=== PATIENT | female | born 1950 | race Caucasian/White ===

== ENCOUNTER 2017-02-05 17:51 | Observation (INO) | payer MEDICARE ==
[~2017-02-05] VITALS: Ht 167.6 cm; Wt 72.1 kg
[2017-02-05 17:57] VITALS: BP 173/81; PULSE 123; RESP 16; O2SAT 99
--- NOTE | 2017-02-05 18:06 | ED.REPORT ---
HPI-General Illness Date of Service Feb 05, 2017 ED Provider: Joe Triana MD A 66 year old female with a history of palpations, anxiety, hypertension, high cholesterol, GERD and diabetes complaining of chest pain onset 30 minutes ago. The pt experienced sudden onset nonradiating substernal chest "pressure" thirty minutes ago while she was resting, accompanied by difficulty breathing, numbness , dizziness, nausea and palpitations. The pt has also been experiencing abdominal pain for two days. She denies changes in bowel or bladder habits, or shortness of breath. The pt took a 325 aspirin prior to arrival, Xanax at 12:30 and a hydrocodone at 16:30. Nursing Notes Stated Complaint: CHEST TIGHTNESS/TROUBLE BREATHING Chief Complaint: Chest Pain Nursing Notes Reviewed: Yes Allergies: Coded Allergies: Penicillins (Verified Adverse Reaction, Mild, DIARRHEA, ITCHING, 02/05/17) Uncoded Allergies: PENICILLIN (Allergy, Severe, 02/05/17) Scheduled Atenolol (Atenolol) 50 Mg Tablet 50 MG PO HS Atorvastatin (Lipitor) 40 Mg Tablet 40 MG PO DAILY Ezetimibe (Zetia) 10 Mg Tablet 10 MG PO DAILY Losartan/HCTZ 50-12.5 mg (Losartan/HCTZ 50-12.5 mg) 1 Each Tablet 0.5 TABLET PO DAILY Metformin (Metformin) 500 Mg Tablet 1,000 MG PO HS Metformin (Metformin) 500 Mg Tablet 500 MG PO MORNING Omeprazole (Omeprazole) 20 Mg Capsule.dr 20 MG PO MORNING Scheduled PRN Alprazolam (Alprazolam) 0.5 Mg Tablet 0.25 MG PO TID PRN PRN For Anxiety Oxycodone HCl/Acetaminophen (Endocet 10-325 mg Tablet) 1 Each Tablet 1 EACH PO QID PRN PRN For Pain Miscellaneous Medications Aspirin (Aspirin) 325 Mg Tablet 325 MG PO General Time Seen by MD: 18:05 Chief Complaint Chest pain Hx Obtained From: Patient Arrived By: Walk-in Sudden in Onset?: Yes Onset Occurred: 31 - 45 minutes ago Location: : Chest Quality: Pressure Radiation: : Does not radiate Severity: Current: Pain level 4 out of 10 Recent Healthcare: No recent doctor visit, No recent hospitalization Similar Sx Previous: No Past Medical History Past Medical History palpations anxiety hypertension high cholesterol osteoarthritis GERD type II diabetes on Metformin Past Surgical History neck and back fusion left shoulder Reports: Cholecystectomy, Hysterectomy Family History RI (father in his 40's and of RI at 53) stroke Smoking History Unknown if Ever Smoker Social History Other Social History: Ambulatory Status Independent Review of Systems difficulty breathing Full Review of Systems Respiratory: Denies: Shortness of breath Cardiovascular: Reports: Chest pain, Palpitations GI: Reports: Abdominal pain, Nausea Musculoskeletal: Denies: Back pain, Neck pain Neurologic: Reports: Dizziness, Numbness, Denies: Bladder dysfunction, Bowel dysfunction Complete sys rev & neg: except as marked. Physical Exam Constitutional: Well-developed, well-nourished. Not diaphoretic. Head: Normocephalic and atraumatic. Mouth/Throat: Oropharynx is clear and moist. No oropharyngeal exudate. Eyes: EOM are normal. Pupils are equal, round, and reactive to light. Neck: Supple, no tracheal deviation. Cardiovascular: Tachycardic, regular rhythm. No murmurs, rubs or gallops. Equal and intact distal pulses throughout. Pulmonary/Chest: Effort normal and breath sounds normal. No respiratory distress. Abdominal: Soft. No distension. There is no focal tenderness to palpation, rebound, or guarding. Bowel sounds present. Musculoskeletal: Range of motion grossly intact, moving all extremities. No edema or tenderness appreciated. Neurological: AOx3. Grossly nonfocal exam. Strength and sensation intact and equal to bilateral upper and lower extremities. Skin: Warm and dry, no rashes or pallor appreciated. Psychiatric: Appropriate mood and affect. Behavior appears normal. Vital Signs Vital Signs Date Time Temp Pulse Resp B/P Pulse Ox O2 Delivery O2 Flow Rate FiO2 02/05/17 20:07 94 14 130/63 94 Room Air 02/05/17 19:06 108 15 157/59 95 Room Air 02/05/17 17:57 36.6 123 16 173/81 99 Initial VS: Reviewed Interpretation & Diagnostics Interpretation & Diagnostics: Chest/Abdomen/Pelvis CT: IMPRESSION: No evidence of pulmonary embolism. No evidence of aortic dissection or aneurysm. Bilateral renal cysts. Normal appendix. Colonic diverticulosis. Dictated by: Laurent Blandon M.D. on 02/05/2017 at 19:29 Approved by: Laurent Blandon M.D. on 02/05/2017 at 19:35 Lab Results Interpretation Result Diagram: 02/06/17 0340 02/06/17 0340 Test 02/05/17 18:00 Neutrophils (%) (Auto) 44.1% (40-74) Lymphocytes (%) (Auto) 47.3% (14-46) Monocytes (%) (Auto) 7.1% (4-12) Eosinophils (%) (Auto) 1.1% (0-5) Basophils (%) (Auto) 0.2% (0-3) Total Bilirubin 0.5mg/dL (0.0-1.2) Aspartate Amino Transf (AST/SGOT) 17U/L (0-50) Alanine Aminotransferase (ALT/SGPT) 18U/L (0-32) Alkaline Phosphatase 92U/L (25-165) Total Creatine Kinase 115U/L (21-215) Creatine Kinase MB 1.7ng/mL (0.0-5.3) Creatine Kinase MB % % (0.0-5.0) Pro-B-Type Natriuretic Peptide 106.3pg/mL (0-301) Total Protein 8.2g/dL (6.4-8.4) Albumin 4.5g/dL (3.4-5.0) Hold Brooks Top Tube Received (Received) ECG Interpretation ECG Interpretation: sinus tachycardia with a rate of 125 probable LVH with secondary repol abnormality ST depression, consider ischemia, diffuse leads; primarily lateral leads Time: 17:56 Interpreted by: ED physician ECG Interpretation: sinus tachycardia with a rate of [address] changes without evidence of acute infarct Time: 18:46 Interpreted by: ED physician X-Ray Chest Interpretation Chest Xray Interpretation: IMPRESSION: No acute disease Dictated by: Laurent Blandon M.D. on 02/05/2017 at 18:29 Approved by: Laurent Blandon M.D. on 02/05/2017 at 18:29 Interpretation / Wet Read by: Interpret - Radiologist Re-Eval/Medical Decision Med Decision/Clinical Course 66-year-old female presenting to the ED for evaluation of chest pain. Her pain is relieved by nitroglycerin, does have what appear to be ischemic EKG changes. Discussed with the manager talent acquisition as per below. CT scan of the patient's chest , abdomen, and pelvis did not demonstrate any obvious etiology for the patient' s symptoms or presentation. Unclear etiology at this time, however given the findings above, plan admission for further evaluation and management, likely echocardiogram, cardiology consult. Patient agreeable to the plan as stated, no further questions. Source of Hx: Old records Time of Eval: 18:05 Re-Evaluation/Progress Note: Pt informed of the plan for admission during the initial interview. The pt understands and agrees with the plan. All questions are addressed at this time. Time of Eval: 20:32 Re-Evaluation/Progress Note: Pt rechecked, who is comfortable. Her pain has resolved following Nitro. The plan for admission is further discussed. Consultation #1: Referral / Consult Name: Jefferson Rosario MD Consulted With: Cardiology Call Returned at: 20:41 Animal Pathologist: Agrees with eval, Agrees with plan Note: Consulted with Dr. Rosario, cardiology, regarding pt's case. Dr. Rosario recommends admission for an echocardiogram in the morning, and agrees to consult. Consultation #2: Referral / Consult Name: Luis Bueno MD Consulted With: Hospitalist Call Returned at: 21:02 Animal Pathologist: Agrees with eval, Agrees with plan, Accepts admit Note: Spoke with Dr. Bueno, hospitalist, regarding pt's case. Dr. Bueno agrees with the evaluation and agrees to admit the pt. Counseled Regarding: Diagnosis, Lab results, Need for admission Discharge & Departure Primary Impression: Chest pain Chest pain type: unspecified Qualified Code: R07.9 - Chest pain, unspecified Disposition: ADMITTED TO HOSPITAL Discharge Condition All VS Reviewed: Yes Condition: Stable Referrals: Gracia Hill MD (PCP) Crit Care Except Billable Proc Time Spent: 30-74 minutes Services Performed: Patient management by me, Time spent at bedside, Reviewing test results, Reviewing imaging, Discussing patient care, Documentation in record Critical Care Notes: Please see MDM. [place] Attestation Portions of this note were transcribed by Mary Presley. I, Dr. Triana personally performed the history, physical exam and medical decision-making; I reviewed and confirmed the accuracy of the information in the transcribed note. Signed by: Bere Armstrong, 02/05/2017 and 2103. copies to: Gracia Hill MD, William B MD Feb 05, 2017 18:06 MARY PRESLEY Feb 05, 2017 18:17 Re-Eval/Medical Decision Source of Hx: Old records Time of Eval: 18:05 Re-Evaluation/Progress Note: Pt informed of the plan for admission during the initial interview. The pt understands and agrees with the plan. All questions are addressed at this time. Time of Eval: 20:32 Re-Evaluation/Progress Note: Pt rechecked, who is comfortable. Her pain has resolved following Nitro. The plan for admission is further discussed. Consultation #1: Referral / Consult Name: Jefferson Rosario MD Consulted With: Cardiology Call Returned at: 20:41 Animal Pathologist: Agrees with eval, Agrees with plan Note: Consulted with Dr. Rosario, cardiology, regarding pt's case. Dr. Rosario recommends admission for an echocardiogram in the morning, and agrees to consult. Consultation #2: Referral / Consult Name: Luis Bueno MD Consulted With: Hospitalist Call Returned at: 21:02 Animal Pathologist: Agrees with eval, Agrees with plan, Accepts admit Note: Spoke with Dr. Bueno, hospitalist, regarding pt's case. Dr. Bueno agrees with the evaluation and agrees to admit the pt. Counseled Regarding: Diagnosis, Lab results, Need for admission Discharge & Departure Primary Impression: Chest pain Chest pain type: unspecified Qualified Code: R07.9 - Chest pain, unspecified Disposition: ADMITTED TO HOSPITAL Discharge Condition All VS Reviewed: Yes Condition: Stable Referrals: Gracia Hill MD (PCP) Bere Attestation Portions of this note were transcribed by Mary Presley. I, Dr. Triana personally performed the history, physical exam and medical decision-making; I reviewed and confirmed the accuracy of the information in the transcribed note. Signed by: Bere Armstrong, 02/05/2017 and 210. copies to: Gracia Hill MD, William B MD Feb 05, 2017 18:06 MARY PRESLEY Feb 05, 2017 18:17
[2017-02-05 18:18] LABS: BASOPHILS % (AUTO) 0.2 % (0-3); EOSINOPHILS % (AUTO) 1.1 % (0-5); MONOCYTES % (AUTO) 7.1 % (4-12); Mean Corpuscular Volume 83.2 fL (81-100); NEUTROPHILS % (AUTO) 44.1 % (40-74); Platelet Count 419 bil/L (150-400)
[2017-02-05] MEDS ORDERED: Ondansetron 2 mg/mL 2 mL Inj IVPUSH ONE (18:25)
--- NOTE | 2017-02-05 18:31 | DRSVH ---
PROCEDURE: X-RAY CHEST ONE VIEW, PORTABLE ([id number]) INDICATIONS: cp TECHNIQUE: One view of the chest was acquired. COMPARISON: None. FINDINGS: Surgical changes and devices: None. Lungs and pleura: No pleural effusions or pneumothorax. Lungs are clear. Mediastinum: Mediastinal contours appear normal. Heart size is normal. Bones and chest wall: No suspicious bony lesions. Overlying soft tissues appear unremarkable. IMPRESSION: No acute disease Dictated by: Laurent Blandon M.D. on 02/05/2017 at 18:29 Approved by: Laurent Blandon M.D. on 02/05/2017 at 18:29
[2017-02-05 18:36] LABS: TROPONIN T < 0.010 ug/L (0.0-0.011)
[2017-02-05 18:45] LABS: Magnesium 1.5 mg/dL (1.6-2.6)
[2017-02-05 19:06] VITALS: BP 157/59; PULSE 108; RESP 15; O2SAT 95
--- NOTE | 2017-02-05 19:37 | DRSVH ---
PROCEDURE: CT ANG CHEST/ABD/PEL W/WO CIBTRAST ([id number]) INDICATIONS: chest pain, abd pain; eval for dissection, other TECHNIQUE: Precontrast 5 mm thick sections acquired from the lung apices to the iliac crests. After the adminis tration of intravenous contrast, 3 mm thick sections again acquired from the lung apices to the iliac crests. 3-dimensional maximum intensity projection (MIP) oblique sagittal and coronal reformats wer e then acquired, and/or 3-dimensional volume rendering reformats. For radiation dose reduction, the following was used: automated exposure control. COMPARISON: None. FINDINGS: Image quality: Excellent. AORTA: No evidence of aortic dissection or aneurysm. No periaortic hemorrhage. CHEST: Lungs and pleura: No filling defects to suggest pulmonary emboli. No acute airspace opacities. No p leural effusions or pneumothorax. Central and peripheral airways are patent and normal in caliber. Mediastinum: Heart size is normal. No pericardial effusion. No mediastinal or hilar adenopathy by size criteria. Central pulmonary arteries are normal in size. Esophagus is normal in caliber. No h iatal hernias. Bones and chest wall: No axillary adenopathy by size criteria. Thyroid gland negative. No suspicio us bony lesions. No vertebral body compression fractures. ABDOMEN: Vasculature: Celiac trunk and mesenteric arteries are patent. Renal arteries are also patent. Solid organs: Liver and spleen are normal in size. Gallbladder surgically absent. Biliary system i s non dilated. Pancreas enhances normally. No adrenal nodules. Both kidneys are normal in size and enhancement, without hydronephrosis. There are small bilateral renal cysts Peritoneum and bowel: No free fluid or air. Bowel loops are normal in caliber and wall thickness. Normal appendix. Scattered colonic diverticula Nodes and vessels: No retroperitoneal or mesenteric adenopathy by size criteria. Inferior vena cava is normal in morphology. Bones: No suspicious bony lesions. No vertebral body compression fractures. Miscellaneous: No ventral hernias. IMPRESSION: No evidence of pulmonary embolism. No evidence of aortic dissection or aneurysm. Bilateral renal cysts. Normal appendix. Colonic diverticulosis. Dictated by: Laurent Blandon M.D. on 02/05/2017 at 19:29 Approved by: Laurent Blandon M.D. on 02/05/2017 at 19:35
[2017-02-05 20:07] VITALS: BP 130/63; PULSE 94; RESP 14; O2SAT 94
[2017-02-05] MEDS ORDERED: Magnesium Sulf 2 Gm/50mL Water 2 GM in IV Premix 1 EACH IV ONE ×2 (21:10→23:25)
[2017-02-05] MEDS ORDERED: Potassium Chloride Inj 20 MEQ in Dextrose 5% 250 ML IV ONE (21:10)
[2017-02-05] MEDS ORDERED: Ondansetron 2 mg/mL 2 mL Inj IVPUSH PRN (21:45)
[2017-02-05] MEDS ORDERED: Alum-Mag Hydrox-Simeth 30 mL Suspension PO PRN (21:45)
[2017-02-05] MEDS ORDERED: Polyethylene Glycol (PEG) 17 Gm Powder PO PRN (21:45)
[2017-02-05 22:05] VITALS: BP 137/76; PULSE 83; RESP 17; O2SAT 97
[2017-02-05] MEDS ORDERED: EZET10TA PO (22:21)
[2017-02-05] MEDS ORDERED: ASPI325T32 PO (22:21)
[2017-02-05 22:24] LABS: Creatine Kinase 115 U/L (21-215)
[2017-02-05] MEDS ORDERED: LIP40 PO (23:07)
[2017-02-05] MEDS ORDERED: ATEN50TA PO (23:11)
[2017-02-05] MEDS ORDERED: METF500T4 PO ×2 (23:11)
[2017-02-05] MEDS ORDERED: OMEP20CA11 PO (23:11)
[2017-02-05] MEDS ORDERED: LOSA1TAB69 PO (23:11)
[2017-02-05] MEDS ORDERED: OXYC1TAB91 PO (23:14)
[2017-02-05] MEDS ORDERED: ALPR0.5T8 PO (23:14)
[2017-02-05] MEDS ORDERED: Potassium Chloride 20 mEq SR Tablet PO ONE (23:25)
[2017-02-06] VITALS (11 sets, daily range): BP systolic 137–196; BP diastolic 72–86; PULSE 77–144; RESP 16–26; O2SAT 94–99
--- NOTE | 2017-02-06 00:05 | NUR ---
Admission Pt arrived to room 3017 alert and oriented x3, no c/o pain, and able to ambulate with steady gait. Pt was oriented to room, call light, bed and policies. Pt was placed on telemetry and IV fluids started. Pt has had no c/o chest discomfort since arrival. Home med list updated by Pt calling at home and having him verbally recite from her medication bottles.
[2017-02-06] MEDS: Heparin 5,000 Unit/mL Inj SUBQ SCH ×3 (01:12→15:53)
[2017-02-06] MEDS ORDERED: MeTOProlol 1 mg/mL 5 mL Inj IV ONE (02:50)
--- NOTE | 2017-02-06 04:03 | NUR ---
Adverse Event At 0230 Pt called to let staff know she was feeling hot and flushed, couldn't catch her breath and had left shoulder pain. Vitals at that timer shoed and elevated HR in the 140s as confirmed by telegraph and teletype operator. Bp was obtained and found to be 196/86. Md was paged and EKG obtained. EKG unchanged from admit EKG and Pt was given SL nitroglycerine as well as 5mg of IV metoprolol per verbal bedside order from Do Hager. Pt began feeling better almost immediately and with in 15 minutes Pt felt back to normal and had no more discomfort. HR 115 and BP 184/82. Pt now resting comfortably in bed. Instructed to call staff immediately if anything changes.
[2017-02-06 04:16] LABS: Mean Corpuscular Volume 81.5 fL (81-100)
[2017-02-06 05:01] LABS: Magnesium 2.9 mg/dL (1.6-2.6); Phosphorus 2.8 mg/dL (2.5-4.9); TROPONIN T 0.01 ug/L (0.0-0.011)
--- NOTE | 2017-02-06 05:13 | PCM.HPMED ---
Subjective Date of Service Feb 05, 2017 Primary Provider: Admitting Physician: Luis Bueno MD Primary Care Physician: Gracia Hill MD Attending Physician: Luis Bueno MD Admit Status: From the Emergency Department Chief Complaint: Chest pain with nausea and shortness of breath History of Present Illness: The patient is a 66-year-old female with past medical history remarkable for hypertension, hyperlipidemia, diabetes [id number] who presents with chest pain, shortness of breath, nausea and lightheadedness. The patient states that today at approximately 4 PM she noticed nonradiating substernal chest pain described as a crampy nature which occurred while she was resting which was accompanied by shortness of breath and numbness in both her hands and feet dizziness nausea and palpitations. The patient states that she had been experiencing abdominal pain which has been described as chronic since a cholecystectomy years ago for which she takes Xanax prescribed by her PCP to help relax a cramping stomach. The pt took a 325 aspirin prior to arrival, Xanax at 12:30 and a hydrocodone at 16:30. The patient has a family history of coronary artery disease with her father having a heart attack in his 40s and dying of heart attacks in his 50s. Review of Systems: A comprehensive review of systems was obtained and all are negative except for what is included in the history of present illness. Allergies Coded Allergies: Penicillins (Verified Adverse Reaction, Mild, DIARRHEA, ITCHING, 02/05/17) Uncoded Allergies: PENICILLIN (Allergy, Severe, 02/05/17) Home Medications Alprazolam 0.25 mg by mouth 3 times a day when necessary Aspirin 325 mg Atenolol 50 mg at bedtime Atorvastatin 40 mg daily Ezetimibe 10 mg daily Olmesartan HCT currently unknown dose Omeprazole 20 mg by mouth Percocet 10 mg 325 mg 4 times a day when necessary PMH Hypertension Hyperlipidemia Diabetes Degenerative joint disease Surgical History Cholecystectomy Hysterectomy Cervical fusion Lumbar fusion Left shoulder surgery Left knee surgery Left ankle surgery Family History Father had multiple heart attacks starting in his 40s in his 50s Mother had multiple strokes starting in her 50s and in her 60s Sister has Alzheimer's disease and possible traumatic brain injury Social History Hx Alcohol Use: No Hx Substance Use: No Hx Tobacco Use: No Smoking Status: Former Smoker (described as light) Living Arrangement: with Family Exam Vital Signs Vital Sign - Last Date Time Temp Pulse Resp B/P Pulse Ox O2 Delivery O2 Flow Rate FiO2 02/05/17 22:05 36.4 83 17 137/76 97 Room Air Exam Constitutional: Adult female appearing approximately stated age in no acute distress lying comfortably in bed Eyes: Extraocular motion intact, Pupils are equal, round, and reactive to light , anicteric sclera noninjected conjunctiva HENT: Normocephalic and atraumatic, Oropharynx clear with moist mucous membranes without central cyanosis or cobblestoning mucosa Neck: Supple, no tracheal deviation, no thyromegaly Cardiovascular: Normal rate, regular rhythm. With soft systolic ejection murmur noted at apex, no rubs or gallops. Equal and intact distal pulses throughout. Pulmonary/Chest: Clear to auscultation in all lung steel without wheezing rales or rhonchi No respiratory distress. Abdominal: Soft. No distension. Nontender. There is no rebound or guarding. Bowel sounds present. Extremities: Without edema, cyanosis, clubbing, pulses intact bilaterally at radial and dorsalis pedis Neurological: AOx3. Grossly nonfocal exam. Skin: Warm and dry Psychiatric: Appropriate mood and affect. Lab and Diagnostics Result Diagram: 02/05/17 1800 02/05/17 1800 X-Rays, CTs and MRIs CT ANG CHEST/ABD/PEL W/WO CIBTRAST IMPRESSION: No evidence of pulmonary embolism. No evidence of aortic dissection or aneurysm. Bilateral renal cysts. Normal appendix. Colonic diverticulosis. Dictated by: Laurent Blandon M.D. on 02/05/2017 at 19:29 Approved by: Laurent Blandon M.D. on 02/05/2017 at 19:35 X-RAY CHEST ONE VIEW, PORTABLE IMPRESSION: No acute disease Dictated by: Laurent Blandon M.D. on 02/05/2017 at 18:29 Approved by: Laurent Blandon M.D. on 02/05/2017 at 18:29 12-lead ECG ECG shows sinus tachycardia with Q waves noted in II, III, and aVF as well as V4 through V6 and mild (less than 1 mm) diffuse ST segment changes including the appearance of depression in I and II and V3-V6, with reciprocal ST elevations (again less than 1 mm) in aVR and V1 Cardiac Echo Impressions Prior performed Echocardiogram Report in 2002 Interpretation Summary The left ventricle is normal in size, wall thickness, and systolic function without any focal wall motion abnormalities. Assessment of diastolic parameters indicates a relaxation abnormality of the left ventricle, consistent with normal filling pressures. The right ventricle is normal in size and function. The right ventricular systolic pressure is estimated at 21 mmHg assuming a right atrial pressure of 3 mm Hg. Both atria are normal in size. There is mild mitral regurgitation. There is no other significant valvular heart disease. The aortic root is normal size. The dimensions of the ascending aorta are normal. Reading Physician:CARMELITA Assessment & Plan The patient is a 66-year-old female with past medical history remarkable for hypertension, hyperlipidemia, diabetes [id number] who presents with chest pain, shortness of breath, nausea and lightheadedness. # atypical chest pain - Differential diagnosis includes sinus tachycardia leading to atypical angina, pericarditis, anxiety - Pain occurs at rest but is substernal and appears to radiate into her left shoulder and likely relieved by nitroglycerin - CT chest abdomen and pelvis to rule out dissection and PE felt to reveal a source of the pain - ECG shows sinus tachycardia with Q waves noted in II, III and aVF as well as V4 through V6 and mild (less than 1 mm) diffuse ST segment changes including the appearance of depression in I and II and V3-V6, with reciprocal ST elevations (again less than 1 mm) in aVR and V1 - Troponins trended every 6 hours repeatedly negative, as well as CK and CK-MB being negative - Patient had a reoccurrence of her chest pain overnight after admission with tachycardia into the 120s and blood pressure 180s systolic with repeat ECG showing sinus tachycardia continuation of above-described ST segment, pain resolved after metoprolol 5 mg IV and sublingual nitroglycerin, pain seems to resolve more so because of the nitroglycerin than the metoprolol at this time. It is still uncertain if the pain leads to the tachycardia driven by anxiety or if the tachycardia leads to the pain due to possible atypical angina - Patient admits to what could have possibly been a recent cold-like symptoms making pericarditis possible given the diffuse ST segment changes described above - Lipid panel ordered for risk assessment - Echocardiogram ordered in the morning - Nuclear medicine stress test ordered however this may be delayed both due to lack of staffing and recent beta octavio administration - Nitroglycerin and morphine available when necessary - Day team to consider cardiology consult # Mild Leukocytosis - Initial white blood cell count 12.2 with lymphocyte predominance 47.3%, corrected to 8.4 on repeat draw, however making viral infection and resultant pericarditis possible given her recent cold-like symptoms - Patient does not appear acutely infectious at this time, and states her symptoms had seemed to resolve - Viral PCR ordered # Mild Thrombocytosis - 419,000 on admission initial draw repeated at 374,000 - Monitor # Acute Hypokalemia - Potassium 3.0 - Repleted with repeat BMP pending # Acute hypomagnesemia - Initially 1.5 - Repleted with 4 grams IV - Monitor # Diabetes mellitus type II [id number] - Continue patient's home metformin given low risk of lactic acidosis - Metformin 500 mg daily and 1000 mg at bedtime # Chronic hyperlipidemia - Lipid panel ordered for cardiac risk analysis - Continue outpatient atorvastatin 40 mg daily - Continue outpatient facility at 10 mg daily - Continue outpatient ASA therapy # Chronic hypertension - Patient had a bout of tachycardia and hypertension described above overnight which was treated with metoprolol 5 mg IV with resolution, workup described above - Patient is on a Nonstandard ARB Olmesartan - Pharmacy called and will initiate low-dose losartan given patient's blood pressure status - Monitor # Chronic pain - Continue patient's home Percocet dosage # Possible chronic anxiety - Patient states that she is currently prescribed Xanax for stomach cramping, which is taken when necessary and is being currently held overnight, the team to consider likelihood of tachycardia associated anxiety and consider diazepam therapy GI prophylaxis: Famotidine 20 mg twice a day DVT prophylaxis: Heparin 5000 units 3 times a day CODE STATUS full Patient is admitted for observation status at this time given presenting symptoms, likely diagnoses, possible complications, and required treatment expected length of stay less than to midnights. Pain Evaluation: Adequate Pain Control VTE Prophylaxis Indicated: Meets Criteria for Anticoag Therapy VTE Prophylaxis: Sub-Q Heparin (Unfractionated) Resuscitation Status: CPR: Attempt Resuscitation Attending Statement The patient was seen and examined together with Dr. Mullins on 02/05 and I agree with the history, exam and plan as outlined in the note above. Christopher Hager DO Feb 05, 2017 23:30 Luis Bueno MD Feb 06, 2017 06:55
[2017-02-06] MEDS: Pantoprazole 40 mg ER24 Tablet PO SCH ×2 (09:05→15:53)
[2017-02-06] MEDS: oxyCODONE-Acetamin 10-325 mg Tablet PO PRN ×2 (11:25→17:11)
--- NOTE | 2017-02-06 12:23 | NUR ---
QIAN explained and signed. Copy of LAUGHLIN provided to pt.
--- NOTE | 2017-02-06 13:28 | PCM.PNMED ---
Subjective Date of Service Feb 06, 2017 Subjective She remains quite anxious. No current chest pain. She describes waking up at 3 in the morning with palpitations. Fear of Additional palpitations/chest pain apparently kept her from sleeping. Her is present and he appears to be similarly irritable, upset that standard Medicare forms that require patient signatures are being brought to her in the middle of the day for signature. He feels that she is more confused than usual. She is a long-term benzodiazepine user and he strikes me as somebody who could be one of the causes of anxiety in the context of a long-term relationship. Magnesium level initially was low so now after 4 g IV it is up to 2.9. The BMP is normal. The cholesterol is 180. The LDL is 95. Exam Vital Signs Vital Sign - Last Date Time Temp Pulse Resp B/P Pulse Ox O2 Delivery O2 Flow Rate FiO2 02/06/17 05:42 87 02/06/17 05:31 36.4 17 157/84 97 Room Air Intake and Output 02/05/17 02/05/17 02/06/17 Cumulative From/Thru 15:00 23:00 07:00 02/05/17 17:57 - 02/06/17 05:31 Intake Total 125 ml 125 ml Output Total 800 ml 800 ml Balance -675 ml -675 ml Intake Oral 125 ml 125 ml Output Urine Total 800 ml 800 ml Exam Heart is regular rate and rhythm without murmur Lungs are clear to auscultation bilaterally Extremities have no ankle edema. IVs and Medications Medications Reviewed: Medications were reviewed in detail Lab and Diagnostics Result Diagram: 02/06/17 0340 02/06/17 0340 X-Rays, CTs and MRIs CT ANG CHEST/ABD/PEL W/WO CIBTRAST IMPRESSION: No evidence of pulmonary embolism. No evidence of aortic dissection or aneurysm. Bilateral renal cysts. Normal appendix. Colonic diverticulosis. Dictated by: Laurent Blandon M.D. on 02/05/2017 at 19:29 Approved by: Laurent Blandon M.D. on 02/05/2017 at 19:35 X-RAY CHEST ONE VIEW, PORTABLE IMPRESSION: No acute disease Dictated by: Laurent Blandon M.D. on 02/05/2017 at 18:29 Approved by: Laurent Blandon M.D. on 02/05/2017 at 18:29 12-lead ECG ECG shows sinus tachycardia with Q waves noted in II, III, and aVF as well as V4 through V6 and mild (less than 1 mm) diffuse ST segment changes including the appearance of depression in I and II and V3-V6, with reciprocal ST elevations (again less than 1 mm) in aVR and V1 Cardiac Echo Impressions Prior performed Echocardiogram Report in 2002 Interpretation Summary The left ventricle is normal in size, wall thickness, and systolic function without any focal wall motion abnormalities. Assessment of diastolic parameters indicates a relaxation abnormality of the left ventricle, consistent with normal filling pressures. The right ventricle is normal in size and function. The right ventricular systolic pressure is estimated at 21 mmHg assuming a right atrial pressure of 3 mm Hg. Both atria are normal in size. There is mild mitral regurgitation. There is no other significant valvular heart disease. The aortic root is normal size. The dimensions of the ascending aorta are normal. Reading Physician:AM Assessment & Plan The patient is a 66-year-old female with past medical history remarkable for hypertension, hyperlipidemia, diabetes [id number] who presents with chest pain, shortness of breath, nausea and lightheadedness. # atypical chest pain - Differential diagnosis includes sinus tachycardia leading to atypical angina, pericarditis, anxiety - Pain occurs at rest but is substernal and appears to radiate into her left shoulder and likely relieved by nitroglycerin - CT chest abdomen and pelvis to rule out dissection and PE did not reveal a source of the pain - ECG shows sinus tachycardia with Q waves noted in II, III and aVF as well as V4 through V6 and mild (less than 1 mm) diffuse ST segment changes including the appearance of depression in I and II and V3-V6, with reciprocal ST elevations (again less than 1 mm) in aVR and V1 - Troponins trended every 6 hours repeatedly negative, as well as CK and CK-MB being negative - Patient had a reoccurrence of her chest pain overnight after admission with tachycardia into the 120s and blood pressure 180s systolic with repeat ECG showing sinus tachycardia continuation of above-described ST segment, pain resolved after metoprolol 5 mg IV and sublingual nitroglycerin, pain seems to resolve more so because of the nitroglycerin than the metoprolol at this time. It is still uncertain if the pain leads to the tachycardia driven by anxiety or if the tachycardia leads to the pain due to possible atypical angina - Patient admits to what could have possibly been a recent cold-like symptoms making pericarditis possible given the diffuse ST segment changes described above - Echocardiogram done this morning and reading is pending. - Nuclear medicine stress test ordered however this has been delayed to tomorrow due to lack of staffing. - Nitroglycerin and morphine available when necessary # Mild Leukocytosis - Initial white blood cell count 12.2 with lymphocyte predominance 47.3%, corrected to 8.4 on repeat draw, however making viral infection and resultant pericarditis possible given her recent cold-like symptoms - Patient does not appear acutely infectious at this time, and states her symptoms had seemed to resolve - Viral PCR still pending # Mild Thrombocytosis - Resolved # Acute Hypokalemia - Potassium 3.0 on admission - Now normalized # Acute hypomagnesemia - Initially 1.5 - Repleted with 4 grams IV - Now up to 2.9. # Diabetes mellitus type II [id number] - Continue patient's home metformin given low risk of lactic acidosis - Metformin 500 mg daily and 1000 mg at bedtime # Chronic hyperlipidemia - Lipids are reasonable levels with an LDL of 95, consider additional dosing of atorvastatin. - Continue outpatient atorvastatin 40 mg daily - Continue outpatient ASA therapy # Chronic hypertension - Patient had a bout of tachycardia and hypertension described above overnight which was treated with metoprolol 5 mg IV with resolution, workup described above - Patient is on Olmesartan at home - Pharmacy called and changed to low-dose losartan given patient's blood pressure status - Monitor # Chronic pain - Continue patient's home Percocet dosage # Possible chronic anxiety - Patient states that she is currently prescribed Xanax for stomach cramping, which is taken when necessary and is being currently held overnight, the team to consider likelihood of tachycardia associated anxiety and consider diazepam therapy GI prophylaxis: Famotidine 20 mg twice a day DVT prophylaxis: Heparin 5000 units 3 times a day CODE STATUS full Patient is admitted for observation status at this time given presenting symptoms, likely diagnoses, possible complications, and required treatment expected length of stay less than 2 midnights. Pain Evaluation: Adequate Pain Control VTE Prophylaxis: Sub-Q Heparin (Unfractionated) VTE Mechanical Devices: Intermittant Pneumatic CD Resuscitation Status: CPR: Attempt Resuscitation Quentin Weiss MD Feb 06, 2017 07:54
--- NOTE | 2017-02-06 13:30 | NUR ---
Pain Patient had complaints of 4/10 headache pain this morning. 650mg Tylenol was administered. Patient pain level did decrease upon assessment to 3/10. about 2 hours later patient had headache pain of 9/10. Perc 10/325 was administered and an ice pack given. When reassessed pain had decreased to 2-3/10. Will continue to monitor.
--- NOTE | 2017-02-06 15:02 | NUR ---
Social Work-initial assessment/readiness for discharge: Data:See initial assessment. Pt is a 66 y/o female who was admitted on 02/05/17 for chest pain resolved per H&P. Pt's insurance is [employer] and PCP is Gracia Hill MD. EMR reviewed. SW met with pt at bedside, SW role explained. Pt is alert and oriented x3. Pt resides at home with her where she remains independent with ADLs. Pt drives and does not use any DME. Pt has no HH Or SNF history. Pt has no exterminator helper termite care or VA benefits. SW discussed DPOA/ advanced directive, pt confirms she has not completed this and is not interested in any information. Per RN notes, pt has been up independent in her room. Pt's family to provide transport home. SW placed phone number and plan on white board in room. No discharge needs identified.SW will continue to follow if needs arise. Assessment:Pt who is independent at baseline. Plan:Pt to discharge home when medically stable via POV. No discharge needs identified.SW will continue to follow if needs arise. SARTHAK Wilkins Addendum: 02/06/17 at 1505 by JOHANA JOHNSON Amended: Links added.
--- NOTE | 2017-02-06 18:45 | NUR ---
Patient Care: Patient care started at 1700 for this patient. Patient is in her bed resting comfortably. Her Daughter is at her bedside. Patient will be NPO after midnight for her AM stress test.
[2017-02-07] MEDS: Heparin 5,000 Unit/mL Inj SUBQ SCH ×2 (00:21→08:04)
[2017-02-07] MEDS: oxyCODONE-Acetamin 10-325 mg Tablet PO PRN ×3 (01:16→14:11)
[2017-02-07 01:21] VITALS: BP 144/83; PULSE 86; RESP 18; O2SAT 97
[2017-02-07 04:45] VITALS: BP 114/65; PULSE 78; RESP 18; O2SAT 96
[2017-02-07 05:34] VITALS: PULSE 89
--- NOTE | 2017-02-07 06:17 | NUR ---
NPO after Midnight Pt has been NPO after midnight, Pt educated regarding the necessity of her having nothing to eat or drink prior to her stress test and Pt verbalized understanding.
[2017-02-07] MEDS: Pantoprazole 40 mg ER24 Tablet PO SCH ×2 (08:04→15:57)
[2017-02-07 08:45] VITALS: BP 139/77; PULSE 74; RESP 18; O2SAT 94
[2017-02-07 08:54] VITALS: PULSE 84
[2017-02-07 12:59] VITALS: BP 136/70; PULSE 79; RESP 18; O2SAT 96
--- NOTE | 2017-02-07 14:46 | PCM.DC.MED ---
Discharge Summary Date of Service Feb 07, 2017 Dates of Hospitalization Date of Hospital Admission Feb 05, 2017 at 21:21 Date of Discharge: Feb 07, 2017 Providers: Admitting Physician: Luis Bueno MD Primary Care Physician: Gracia Hill MD Attending Physician: Luis Bueno MD Diagnosis at Time of Discharge Diagnosis at Time of Discharge # Atypical chest pain; without evidence of ACS. Resolved. # Acute hypomagnesemia; resolved. # Diabetes mellitus type II [id number] # Chronic hyperlipidemia # Chronic hypertension # Chronic pain # Anxiety spectrum disorder Procedures XRay, CTs & MRIs CT ANG CHEST/ABD/PEL W/WO CIBTRAST IMPRESSION: No evidence of pulmonary embolism. No evidence of aortic dissection or aneurysm. Bilateral renal cysts. Normal appendix. Colonic diverticulosis. Dictated by: Laurent Blandon M.D. on 02/05/2017 at 19:29 Approved by: Laurent Blandon M.D. on 02/05/2017 at 19:35 X-RAY CHEST ONE VIEW, PORTABLE IMPRESSION: No acute disease Dictated by: Laurent Blandon M.D. on 02/05/2017 at 18:29 Approved by: Laurent Blandon M.D. on 02/05/2017 at 18:29 ECG 12 Lead ECG shows sinus tachycardia with Q waves noted in II, III, and aVF as well as V4 through V6 and mild (less than 1 mm) diffuse ST segment changes including the appearance of depression in I and II and V3-V6, with reciprocal ST elevations (again less than 1 mm) in aVR and V1 Cardiac Echo Impression Prior performed Echocardiogram Report in 2002 Interpretation Summary The left ventricle is normal in size, wall thickness, and systolic function without any focal wall motion abnormalities. Assessment of diastolic parameters indicates a relaxation abnormality of the left ventricle, consistent with normal filling pressures. The right ventricle is normal in size and function. The right ventricular systolic pressure is estimated at 21 mmHg assuming a right atrial pressure of 3 mm Hg. Both atria are normal in size. There is mild mitral regurgitation. There is no other significant valvular heart disease. The aortic root is normal size. The dimensions of the ascending aorta are normal. Reading Physician:AM Brief History per HPI by admitting physician, "The patient is a 66-year-old female with past medical history remarkable for hypertension, hyperlipidemia, diabetes non- insulin-dependent who presents with chest pain, shortness of breath, nausea and lightheadedness. The patient states that today at approximately 4 PM she noticed nonradiating substernal chest pain described as a crampy nature which occurred while she was resting which was accompanied by shortness of breath and numbness in both her hands and feet dizziness nausea and palpitations. The patient states that she had been experiencing abdominal pain which has been described as chronic since a cholecystectomy years ago for which she takes Xanax prescribed by her PCP to help relax a cramping stomach. The pt took a 325 aspirin prior to arrival, Xanax at 12:30 and a hydrocodone at 16:30. The patient has a family history of coronary artery disease with her father having a heart attack in his 40s and dying of heart attacks in his 50s." Hospital Course # atypical chest pain - Differential diagnosis includes sinus tachycardia leading to atypical angina, pericarditis, anxiety. - Pain improved through hospitalization, essentially resolved on discharge. - Pt notes chronic GERD/INdigestion, which she does take Omeprazole for, however does is only 20mg once daily. She states she had felt pain was low down and related to stomach, as it worsening after meals. GIven increased dosage of PPI during hosiptalization, it may be that more aggressive treatment was a benefit. ON DC we will continue increased dosage of PPI in addition to H2 octavio at this time pending FU with PCP who may consider taper at some point in future. - Though ECG showed sinus tachycardia with Q waves noted in II, III and aVF as well as V4 through V6 and mild (less than 1 mm) diffuse ST segment changes including the appearance of depression in I and II and V3-V6, with reciprocal ST elevations (again less than 1 mm) in aVR and V1, additional cardiac evaluation including continuous telemetry monitoring, ECHO, and stress test demonstrated no evidence of acute ACS or underlyding heart condition. Troponin values were normal. # Mild Leukocytosis - Viral PCR negative - Pt medically stable, nontoxic in appearance on discharge. - NO further intervention considered. # Mild Thrombocytosis - Resolved # Acute Hypokalemia - Potassium 3.0 on admission - Now normalized # Acute hypomagnesemia - Initially 1.5 - Over repleted with 4 grams IV - Now normal at 2.0 on discharge # Diabetes mellitus type II [id number] - Continue patient's home metformin given low risk of lactic acidosis - Metformin 500 mg daily and 1000 mg at bedtime # Chronic hyperlipidemia - No changes in MGMT # Chronic hypertension - stable during hospital stay on home medications. # Chronic pain - Continued patient's home Percocet dosage # Possible chronic anxiety - stable during hospitalization. Exam Vital Signs (Last) Date Time Temp Pulse Resp B/P Pulse Ox O2 Delivery O2 Flow Rate FiO2 02/07/17 12:59 36.7 79 18 136/70 96 Room Air Exam Heart is regular rate and rhythm without murmur, runs, or gallops Lungs are clear to auscultation bilaterally Extremities have no ankle edema. Nonfocal neurologic examination Test 02/05/17 18:00 02/06/17 03:40 02/07/17 07:04 Neutrophils (%) (Auto) 44.1% (40-74) Lymphocytes (%) (Auto) 47.3% (14-46) Monocytes (%) (Auto) 7.1% (4-12) Eosinophils (%) (Auto) 1.1% (0-5) Basophils (%) (Auto) 0.2% (0-3) Total Bilirubin 0.5mg/dL (0.0-1.2) Aspartate Amino Transf (AST/SGOT) 17U/L (0-50) Alanine Aminotransferase (ALT/SGPT) 18U/L (0-32) Alkaline Phosphatase 92U/L (25-165) Total Creatine Kinase 115U/L (21-215) Creatine Kinase MB 1.7ng/mL (0.0-5.3) Creatine Kinase MB % % (0.0-5.0) Pro-B-Type Natriuretic Peptide 106.3pg/mL (0-301) Total Protein 8.2g/dL (6.4-8.4) Albumin 4.5g/dL (3.4-5.0) Hold Brooks Top Tube Received (Received) White Blood Count 8.4th/mm3 (3.8-10.1) Red Blood Count 4.97mil/mm3 (3.90-5.20) Hemoglobin 13.4g/dL (12.0-15.6) Hematocrit 40.5% (35.0-46.0) Mean Corpuscular Volume 81.5fL (81-100) Mean Corpuscular Hemoglobin 27.0pg (27.0-35.0) Mean Corpuscular Hemoglobin Concent 33.1% (32.0-37.0) Red Cell Distribution Width 14.8% (12.3-15.4) Platelet Count 374bil/L (150-400) Sodium Level 141mEq/L (134-144) Potassium Level 4.6mEq/L (3.5-5.2) Chloride Level 103mEq/L (97-108) Carbon Dioxide Level 19mmol/L (18-29) Blood Urea Nitrogen 12mg/dL (8-27) Creatinine 0.73mg/dL (0.57-1.00) Estimat Glomerular Filtration Rate 114mL/min (>59) Glucose Level 143mg/dL (60-99) Calcium Level 9.2mg/dL (8.5-10.1) Phosphorus Level 2.8mg/dL (2.5-4.9) Troponin T 0.010ug/L (0.0-0.011) Triglycerides Level 112mg/dL (0-149) Cholesterol Level 180mg/dL (100-199) LDL Cholesterol, Calculated 95.600mg/dL (0-99) VLDL Cholesterol 22.400mg/dL HDL Cholesterol 62mg/dL (>39) Cholesterol/HDL Ratio 2.90 (0.0-4.4) Thyroid Stimulating Hormone (TSH) 1.610uIU/mL (0.450-4.500) Hold Purple Top Tube Received (Received) Magnesium Level 2.0mg/dL (1.6-2.6) Hold [place] Top Tube Received (Received) Discharge Medications Discharge Medications Atenolol (Atenolol) 50 Mg Tablet 50 MG PO HS (Reported) Atorvastatin (Lipitor) 40 Mg Tablet 40 MG PO DAILY (Reported) Ezetimibe (Zetia) 10 Mg Tablet 10 MG PO DAILY (Reported) Losartan/HCTZ 50-12.5 mg (Losartan/HCTZ 50-12.5 mg) 1 Each Tablet 0.5 TABLET PO DAILY (Reported) Metformin (Metformin) 500 Mg Tablet 1,000 MG PO HS (Reported) Metformin (Metformin) 500 Mg Tablet 500 MG PO MORNING (Reported) Omeprazole (Omeprazole) 20 Mg Capsule.dr 20 MG PO MORNING (Reported) As needed Alprazolam (Alprazolam) 0.5 Mg Tablet 0.25 MG PO TID PRN PRN For Anxiety ( Reported) Oxycodone HCl/Acetaminophen (Endocet 10-325 mg Tablet) 1 Each Tablet 1 EACH PO QID PRN PRN For Pain (Reported) Miscellaneous Medications Aspirin (Aspirin) 325 Mg Tablet 325 MG PO (Reported) Followup Plan Disposition: Home in stable condition Discharge Diet: Heart Healthy Discharge Activity: No restrictions Follow-up Provider: Gracia Hill MD Follow-up with PCP in: 1 week Time spent 40 minutes copies to: Gracia Hill MD Vital Signs Vital Sign - Last Date Time Temp Pulse Resp B/P Pulse Ox O2 Delivery O2 Flow Rate FiO2 02/07/17 12:59 36.7 79 18 136/70 96 Room Air Intake and Output 02/06/17 02/06/17 02/07/17 Cumulative From/Thru 15:00 23:00 07:00 02/05/17 17:57 - 02/07/17 04:46 Intake Total 10 ml 1000 ml 350 ml 1485 ml Output Total 1200 ml 500 ml 2500 ml Balance 10 ml -200 ml -150 ml -1015 ml Intake Oral 1000 ml 350 ml 1475 ml IV Total 10 ml 10 ml Output Urine Total 1200 ml 500 ml 2500 ml # Bowel Movements 0 0 0 Lab and Diagnostics Result Diagram: 02/06/17 0340 02/06/17 0340 Nick Lovett DO Feb 07, 2017 14:46
[2017-02-07] MEDS ORDERED: PANT40TA3 PO (14:49)
[2017-02-07] MEDS ORDERED: FAMO20T PO (14:49)
--- NOTE | 2017-02-07 14:50 | PCM.DIMED ---
Discharge Instructions Date of Service Feb 07, 2017 Dates of Hospitalization Feb 05, 2017 at 21:21 Discharge Diagnosis Discharge Diagnosis # Atypical chest pain; without evidence of ACS. Resolved. #Headache # Acute hypomagnesemia; resolved. # Diabetes mellitus type II [id number] # Chronic hyperlipidemia # Chronic hypertension # Chronic pain # Anxiety spectrum disorder Diet Discharge Diet: Heart Healthy Activity Discharge Activity: No restrictions Patient Instructions Follow-up Provider: Gracia Hill MD Follow-up with PCP in: 1 week Nick Lovett DO Feb 07, 2017 14:50
--- NOTE | 2017-02-07 15:09 | NUR ---
Social Work-discharge: Data:EMR Reviewed. Pt is on day 2 of hospitalization for chest pain per H&P. Pt is medically stable for discharge. Pt has been up independent in her room. Pt's family to provide transport home. No discharge needs identified. All updated and agreeable to plan. Assessment:Pt who is independent at baseline. Plan:Pt to discharge home today via POV. No discharge needs identified. All updated and agreeable to plan. SARTHAK Wilkins
--- NOTE | 2017-02-07 15:14 | NUR ---
Discharge Patient given discharge orders. Patient IV removed fully intact and asymptomatic. Patient given medication list with written times of when next dose due. Patient given hard copies of prescriptions. Patient given informational packet. Patient assisted to main entrance by staff.
--- NOTE | 2017-02-07 15:54 | DRSVH ---
PROCEDURE: EITHER REST OR STRESS ONLY. Exercise myocardial perfusion SPECT with gated imaging and e jection fraction RADIOPHARMACEUTICAL: 22.3 mCi Tc-99m tetrofosmin IV at peak exercise. INDICATIONS: ATYPICAL CHEST PAIN RELIEVED WITH NITRO. TECHNIQUE: Radiopharmaceutical was injected at peak stress test. SPECT images were obtained, with p erfusion images in short axis, horizontal long axis, and vertical long axis views. Gated images were reviewed using [employer] software. COMPARISON: None. CARDIAC STRESS: A standard Brayden treadmill exercise tolerance test was performed by the patient unde r the supervision of attending staff. The patient exercised for 6 minutes and zero seconds; function al aerobic impairment (RAISSA) is 0%. The patient achieved 7 METs of workload. Hemodynamic Data: There is normal blood pressure and heart response to exercise. The patient achiev ed 99% of maximum predicted heart rate. Symptoms: The patient denied anginal chest pain during exercise. EKG: Baseline rhythm was sinus with some repolarization changes with up to 0.[address] de pression in the inferolateral leads, which became more pronounced during stress. No significant arrh ythmias seen. FINDINGS: Raw Data: There appears to be increased subdiaphragmatic activity. Gated Study: Stress LV ejection fraction is 71%. Stress LV and diastolic volume is 43 mL. I do not see any significant wall motion abnormalities. Myocardial Perfusion: Stress supine and stress prone images were compared to each other. Stress sup ine images reveal mildly decreased perfusion of the basal inferior wall, which completely resolved du ring prone images, suggestive of diaphragmatic tissue attenuation artifact. Prone images reveal norm al myocardial perfusion. IMPRESSION: This is a normal myocardial perfusion study. The patient exercised on Brayden protocol fo r 6 minutes. There are no obvious convincing ischemic changes as the patient has baseline upsloping ST depression. Left ventricular function is preserved. No significant arrhythmias. Overall this is a low-risk myocardial perfusion study. The patient had an exercise perfusion study in September 2012. At that time he walked on Brayden protoc ol for 6 minutes and 9 seconds and had similar electrocardiogram changes. There was normal myocardia l perfusion at that time as well. Dictated by: Adrian Stapleton M.D. on 02/07/2017 at 13:32 Transcribed by: ALFONSO on 02/07/2017 at 18:54 Approved by: Adrian Stapleton M.D. on 02/10/2017 at 10:37
--- NOTE | 2017-02-10 10:55 | DRSVH ---
[facility] [address] [place] [address] Echocardiogram Report Name: PERFECTO LITTLEJOHN LStudy Date : 02/06/2017 Height: 66 in Hospital Ex[facility] Weight: 160 lb Gender: Female BSA: 1.8 m2 : 1950 Age: 66 yrs BP: 157/84 m mHg Reason For Study: Chest pain Ordering Physician: [facility] Performed By: Elissa Alvarado Referring Physician[facility] Interpretation Summary The left ventricle is normal in size. The ejection fraction is estimated to be 65-70%. There has been no significant change in LV EF since the previous study. The right ventricle is normal in size and function. No significant valvular pathology seen. Procedure: A two-dimensional transthoracic echocardiogram with color flow and Doppler was performed. The study quality was technically difficult. Comparison is made with the echocardiogram of 11/25/2012. A contrast injection of Definity was performed to improve assessment of LV function. The subcostal views were not obtained due to poor visualization of anatomy. The patient was in normal sinus rhythm during the exam. Left Ventricle: The left ventricle is normal in size. Proximal septal thickening is noted. There is no echo evidence for significant left ventricular outflow tract obstruction. There is no thrombus. The ejection fraction is estimated to be 65-70%. There has been no significant change since the previous study. Septal motion is consistent with conduction abnormality. Spectral Doppler of the mitral valve is reversed, with an E/A wave ratio < 1.0. Right Ventricle: The right ventricle is normal in size and function. Atria: Both atria are normal in size. Both atria have remained unchanged in size since the prior echo exam. There is no Doppler evidence for an interatrial shunt. Mitral Valve: The mitral valve leaflets are slightly calcified. There is mild mitral annular calcification. There is trace mitral regurgitation. Aortic Valve: The aortic valve is trileaflet. The aortic valve opens well. There is mild aortic valve sclerosis. There is no aortic valve stenosis. No aortic regurgitation is present. Tricuspid Valve: The tricuspid valve is normal in structure and function. Pulmonary artery pressures cannot be estimated because of the lack of a measurable TR jet velocity. There is trace tricuspid regurgitation. Pulmonic Valve: The pulmonic valve is not well seen, but is grossly normal. There is trace pulmonic regurgitation. Great Vessels: The aortic root is normal size. The ascending aorta could not be visualized. The aortic arch is normal in size. The inferior vena cava was not visualized. Pericardium/ Pleura There is no pericardial effusion. MMode/2D Measurements & Calculations LVIDd: 4.2 cm RA long axis LVOT diam: 1.9 cm LVIDs: 3.4 cm LA A2 area: 14.0 cm AoV Opening FS: 20.5 % LA A4 area: 17.9 cm RA area IVSd: 0.94 cm LA length (vol) Ao root diam LVPWd: 1.1 cm : 10.2 cm LA vol: 41.6 ml RA vol Ao Arch Diam (Prox LA vol index : 21.4 ml Trans): 3.1 cm RA : 22.9 ml/m2 : 11.8 mm2 LV alston. diameter/BSA LV sys. diameter/BSA RVD1 (basal) RVD2 (mid): 2.0 cm (cm/m^2): 2.3 (cm/m^2): 1.8 TAPSE: 2.6 cm Doppler Measurements & Calculations Ao V2 max MV E max nixon MV E/A: 0.58 PA V2 max : 153.3 cm/sec : 55.9 cm/sec Med Peak E' Nixon : 100.4 cm/sec Ao max PG MV A max nixon PA mean PG : 9.4 mmHg : 97.0 cm/sec E/E' med: 9.7 Ao mean PG MV P1/2t: 53.0 msec Lat Peak E' Nixon PA Accel Time : 0.13 sec LVOT Max Nixon E/E' lat: 7.6 : 104.3 cm/sec E/e' average: 8.6 INDIO(I,D): 1.9 cm sev ratio MV dec time MV P1/2t max nixon Ao V2 mean LV V1 max PG : 0.18 sec : 91.7 cm/sec Ao V2 VTI: 29.8 cm LV V1 VTI MVA(P1/2t): 4.2 cm2 : 20.6 cm INDIO(V,D): 1.9 cm2 PA V2 mean INDIO indexed to BSA : 64.5 cm/sec (cm^2/m^2): 1.1 Reading Physician:CARMELITA
== END 2017-02-07 15:20 | disposition home or self-care (01) ==
LOC: SED 17:51 → MPC 21:21
PROVIDERS: ADMIT Hospitalist; ATTEND Hospitalist
DX: R07.89 Other chest pain (principal); E83.42 Hypomagnesemia; E11.9 Type 2 diabetes mellitus without complications; E78.5 Hyperlipidemia, unspecified; I10 Essential (primary) hypertension; G89.4 Chronic pain syndrome; F41.9 Anxiety disorder, unspecified; K21.9 Gastro-esophageal reflux disease without esophagitis; D72.829 Elevated white blood cell count, unspecified; D47.3 Essential (hemorrhagic) thrombocythemia; E87.6 Hypokalemia; M19.90 Unspecified osteoarthritis, unspecified site; Z87.891 Personal history of nicotine dependence; Z79.84 Long term (current) use of oral hypoglycemic drugs; Z79.82 Long term (current) use of aspirin
CPT/HCPCS: 36415; 71010; 71275; 74174; 78451; 80048; 80053; 80061; 82550; 82553; 83036; 83735; 83835; 83880; 84100; 84443; 84484; 85025; 85027; 87633; 93005; 93017; 96374; 96375; 96376; 99285; A9502; C8929; G0378; J1644; J2270; J2405; J3480; Q9957; Q9967